=== PATIENT | female | born 1960 | race Caucasian/White ===

== ENCOUNTER 2024-06-08 09:14 | Day surgery (SDC) | payer BC ==
[2024-06-08] MEDS ORDERED: Propofol 200 MG/20 ML SDV ONE ×2 (09:30→09:38)
[2024-06-08] MEDS ORDERED: fentaNYL 100 MCG/2 ML SDV ONE (09:30)
[2024-06-08] MEDS: Lactated Ringers 1,000 ML IV SCH (09:36)
== END 2024-06-08 11:56 | disposition home or self-care (01) ==
LOC: VM.SDS 09:14
PROVIDERS: ATTEND Family Medicine
DX: Z12.11 Encounter for screening for malignant neoplasm of colon (principal); D12.0 Benign neoplasm of cecum; D12.6 Benign neoplasm of colon, unspecified; K57.30 Diverticulosis of large intestine without perforation or abscess without bleeding; M85.80 Other specified disorders of bone density and structure, unspecified site
CPT/HCPCS: J2704; J3010; J7120